=== PATIENT | female | born 1950 | race African-American/Black ===

== ENCOUNTER 2019-03-09 18:14 | Emergency (ER) | payer MEDICARE, OTHER ==
[~2019-03-09] VITALS: Ht 160 cm; Wt 75.0 kg
[~2019-03-09 18:14] MED LIST: 2 MEDS FOR BP; APRESOLINE 25MG25 MG PO; ASPIRIN 81M81 MG/TA2 PO; ASPIRIN E.C. 8181 MG PO; CALCIUM + D 5001 TAB PO; CARDI-OMEGA1000 MG PO; COZAAR 50MG50 MG/TAB PO; FLONASE NASAL S16 GM NS; FORTAMET; GLUCOPHAGE500 MG/TAB PO; HYDRALAZINE HCL; MULTIVITAMIN FO1 CAP PO; NEXIUM 20MG20 MG PO; NEXIUM PO; NORCO 325 MG-51 TAB PO; PREMARIN0.45 MG PO; SINGULAIR; VENTOLIN0.09 MG IH; VYTORIN 10 MG-11 TAB PO; ZYRTEC 10MG10 MG PO
[2019-03-09 18:20] VITALS: BP 166/74; TEMP 96.8
[2019-03-09] MEDS ORDERED: VICTOZA6 MG/ML SQ (18:28)
[2019-03-09] MEDS ORDERED: NORCO 325 MG-51 TAB PO (21:15)
[2019-03-09 21:30] VITALS: PULSE 71
== END 2019-03-09 21:30 | disposition home or self-care (01) ==
LOC: COL.ER 18:14
DX: S05.01XA Injury of conjunctiva and corneal abrasion without foreign body, right eye, initial encounter (principal); H10.211 Acute toxic conjunctivitis, right eye; T49.4X5A Adverse effect of keratolytics, keratoplastics, and other hair treatment drugs and preparations, initial encounter; I10 Essential (primary) hypertension; Z77.098 Contact with and (suspected) exposure to other hazardous, chiefly nonmedicinal, chemicals; Z79.51 Long term (current) use of inhaled steroids

== ENCOUNTER → 2019-05-17 | Outpatient (CLI) | payer MEDICARE, OTHER ==
[~2019-05-17] MED LIST changes: +VICTOZA6 MG/ML SQ
== END ==
LOC: COL.RAD 06:34
DX: K21.9 Gastro-esophageal reflux disease without esophagitis (principal)
CPT/HCPCS: A9541

== ENCOUNTER → 2019-09-13 | Outpatient (CLI) | payer MEDICARE, OTHER | LOC: COL.RAD 12:25 | DX: M17.12 Unilateral primary osteoarthritis, left knee (principal) ==

== ENCOUNTER → 2020-04-10 | Outpatient (CLI) | payer MEDICARE, OTHER | LOC: COL.RAD 04-03 08:15 | DX: Z01.812 Encounter for preprocedural laboratory examination (principal); D32.0 Benign neoplasm of cerebral meninges | CPT/HCPCS: A9585 ==

== ENCOUNTER → 2022-12-03 | Outpatient (CLI) | payer MEDICARE, OTHER ==
[~2022-12-03] MED LIST changes: +CALCIUM 600 MG1 EAC2 PO; +COZAAR100 MG PO; +CRESTOR20 MG PO; +GLUCOPHAGE XR500 M1 PO; +MINOXIDIL 2.5 PO; +PROBIOTIC PEAR1 EAC3 PO; +RT ADVAIR 528 DISKUS IH; +TIAZAC240 MG PO; +[UNRECOGNIZED DRUG - OTHER] PO
[2022-12-03 11:19] LABS: HEMATOCRIT 41.5 % (37.0-47.0); HEMOGLOBIN 13.5 g/dl (12.5-16.0); MEAN CELL VOLUME 85 fl (80.0-100.0); MEAN CORPUSCULAR HEMOGLOBIN 28 pg (27-31); MEAN CORPUSCULAR HGB CONC 33 g/dl (33.0-37.0); MEAN PLATELET VOLUME 10.7 fl (7.4-10.4); PLATELET COUNT 199 K/mm3 (130-400); RED BLOOD COUNT 4.87 M/mm3 (4.10-5.30); REDCELL DISTRIBUTION WIDTH-CV 15.2 % (11.5-14.5)
[2022-12-03 11:31] LABS: ANION GAP 11 mmol/L (7-16); BLOOD UREA NITROGEN 9 mg/dL (10-20); CALCIUM 9.7 mg/dL (8.4-10.2); CARBON DIOXIDE 23 mmol/L (23-31); CHLORIDE 106 mmol/L (98-107); CREATININE, serum 0.84 mg/dL (0.57-1.11); GLUCOSE 136 mg/dL (70-99); POTASSIUM 3.7 mmol/L (3.5-4.5); SODIUM 140 mmol/L (136-145)
[2022-12-03 11:39] LABS: TROPONIN-I < 0.010 ng/mL (0.00-0.033)
== END ==
LOC: COL.LAB 10:44
PROVIDERS: Nurse Practitioner
DX: R07.89 Other chest pain (principal)

== ENCOUNTER → 2024-04-13 | Outpatient (CLI) | payer MEDICARE, OTHER | LOC: COL.RAD 11:07 | DX: M51.16 Intervertebral disc disorders with radiculopathy, lumbar region (principal); M43.16 Spondylolisthesis, lumbar region ==

== ENCOUNTER → 2024-05-31 | Outpatient (CLI) | payer MEDICARE, OTHER | LOC: MHCPAIN 09:16 | DX: M48.062 Spinal stenosis, lumbar region with neurogenic claudication (principal); M43.16 Spondylolisthesis, lumbar region; M47.26 Other spondylosis with radiculopathy, lumbar region; M54.50 Low back pain, unspecified; E11.9 Type 2 diabetes mellitus without complications; Z79.84 Long term (current) use of oral hypoglycemic drugs; I10 Essential (primary) hypertension | CPT/HCPCS: G0463 ==

== ENCOUNTER → 2024-08-02 | Outpatient (CLI) | payer MEDICARE, OTHER | LOC: MHCPAIN 09:51 | DX: M48.062 Spinal stenosis, lumbar region with neurogenic claudication (principal); M47.817 Spondylosis without myelopathy or radiculopathy, lumbosacral region | CPT/HCPCS: G0463 ==